=== PATIENT | female | born 2000 | race African-American/Black ===

== ENCOUNTER 2022-02-15 08:02 | Emergency (ER) | payer OTHER ==
[~2022-02-15] VITALS: Ht 165.1 cm; Wt 59.1 kg
[2022-02-15 08:08] VITALS: BP 140/90; TEMP 98.1
[2022-02-15 08:19] LABS: COLLECTION METHOD CLEAN CATCH
[2022-02-15 08:28] LABS: PH 5 (5-8); SQUAMOUS EPITHELIAL 0-2 /hpf (0-10); URINE APPEARANCE Clear (CLEAR/HAZY); URINE BACTERIA None Seen /hpf (NONE SEEN); URINE BILIRUBIN Negative (NEGATIVE); URINE BLOOD 1+ (NEGATIVE); URINE COLOR Yellow (YELLOW); URINE GLUCOSE Negative (NEGATIVE); URINE KETONE Negative (NEGATIVE); URINE LEUKOCYTE ESTERASE Negative (NEGATIVE); URINE NITRATE Negative (NEGATIVE); URINE PROTEIN(semi-quant) Negative (NEGATIVE); URINE UROBILINOGEN Negative (NEGATIVE)
[2022-02-15] MEDS ORDERED: DOXYCYCLINE HY100 MG PO (09:00)
[2022-02-15 09:05] VITALS: PULSE 72
== END 2022-02-15 09:05 | disposition home or self-care (01) ==
LOC: COL.ER 08:02
PROVIDERS: Emergency Medicine
DX: N93.9 Abnormal uterine and vaginal bleeding, unspecified (principal); Z32.02 Encounter for pregnancy test, result negative
CPT/HCPCS: J0696

== ENCOUNTER 2022-03-15 18:11 | Emergency (ER) | payer OTHER ==
[~2022-03-15] VITALS: Ht 165.2 cm; Wt 59.1 kg
[~2022-03-15 18:11] MED LIST: DOXYCYCLINE HY100 MG PO
[2022-03-15 18:17] VITALS: TEMP 98.5
[2022-03-15 18:42] LABS: COLLECTION METHOD CLEAN CATCH
[2022-03-15 18:47] LABS: MUCOUS Present (NOT PRESENT); PH 6 (5-8); SQUAMOUS EPITHELIAL 0-2 /hpf (0-10); URINE APPEARANCE Clear (CLEAR/HAZY); URINE BACTERIA None Seen /hpf (NONE SEEN); URINE BILIRUBIN Negative (NEGATIVE); URINE BLOOD Negative (NEGATIVE); URINE COLOR Yellow (YELLOW); URINE GLUCOSE Negative (NEGATIVE); URINE KETONE Negative (NEGATIVE); URINE LEUKOCYTE ESTERASE Negative (NEGATIVE); URINE NITRATE Negative (NEGATIVE); URINE PROTEIN(semi-quant) Negative (NEGATIVE); URINE RBC 0-2 /hpf (0-2); URINE UROBILINOGEN Negative (NEGATIVE)
[2022-03-15 20:50] VITALS: BP 117/80; PULSE 75
== END 2022-03-15 20:50 | disposition home or self-care (01) ==
LOC: COL.ER 18:11
PROVIDERS: Nurse Practitioner
DX: N89.8 Other specified noninflammatory disorders of vagina (principal); Z32.02 Encounter for pregnancy test, result negative